=== PATIENT | female | born 1975 | race Caucasian/White ===

== ENCOUNTER 2018-11-18 10:34 | Emergency (ER) | payer BC ==
[~2018-11-18] VITALS: Ht 175.3 cm; Wt 88.5 kg
[2018-11-18 10:39] VITALS: BP_SYST 134
--- NOTE | 2018-11-18 10:44 | NUR ---
Patient to ER bed 2 to gown for evaluation. Side rails up. Report given to Quinten CARRASCO.
--- NOTE | 2018-11-18 11:00 | NUR ---
Pt presents to ED c/o R molar tooth pain x 2-3 months worsening today.Pt denies significant med hx.
--- NOTE | 2018-11-18 11:15 | NUR ---
ER Macy Singer at bedside examining patient.
--- NOTE | 2018-11-18 11:20 | NUR ---
PT TOLERATED WELL.
[2018-11-18] MEDS ORDERED: KETOROLAC TROMETHAMINE 60 MG/2 ML VIAL IM ONE (11:30)
[2018-11-18 11:45] VITALS: BP_SYST 134
--- NOTE | 2018-11-18 11:45 | NUR ---
Patient given written and verbal discharge instructions and verbalizes understanding. ER MD discussed with patient the results and treatment provided. Patient in stable condition. ID arm band removed. Rx of NORCO,MOTRIN AND AUGMENTIN given. Patient educated on pain management and to follow up with PMD. Pain Scale 0. Opportunity for questions provided and answered. Medication side effect fact sheet provided.
== END 2018-11-18 11:45 | disposition home or self-care (01) ==
LOC: SED 10:34
DX: K04.7 Periapical abscess without sinus (principal)
CPT/HCPCS: 96372; 99283; J1885